=== PATIENT | female | born 1970 | race African-American/Black ===

== ENCOUNTER 2016-12-05 09:36 | Emergency (ER) ==
[2016-12-05 09:49] VITALS: TEMP 98.7
[2016-12-05 10:18] VITALS: BMI 34.0
[2016-12-05 10:34] LABS: BASOPHILS % (AUTO) 0.5 % (0.0-3.0); EOSINOPHILS # (AUTO) 0.1 K/ul (0.0-0.7); EOSINOPHILS % (AUTO) 2.3 % (0.0-7.0); HEMATOCRIT 31.7 % (37.0-47.0); HEMOGLOBIN 10.2 g/dl (12.0-16.0); IMMATURE GRANULOCYTE % (AUTO) 0.2 % (0.0-5.0); LYMPHOCYTES # (AUTO) 1.6 K/uL (0.60-3.4); LYMPHOCYTES % (AUTO) 36.6 (10.0-50.0); MEAN CORPUSCULAR HEMOGLOBIN 28.3 pg (27.0-31.0); MEAN CORPUSCULAR HGB CONC 32.2 (31.8-35.4); MEAN CORPUSCULAR VOLUME 87.8 fl (81.0-99.0); MONOCYTES # (AUTO) 0.5 K/uL (0.4-2.0); NEUTROPHILS # (AUTO) 2.1 K/ul (2.0-6.9); NEUTROPHILS % (AUTO) 49.4; PLATELET COUNT 285 10^3/uL (140-440); RED BLOOD COUNT 3.61 10^6/ul (4.20-5.40); WHITE BLOOD COUNT 4.26 K/ul (4.6-10.2)
[2016-12-05 10:55] LABS: ALBUMIN 3.3 g/dL (3.4-5.0); ALBUMIN/GLOBULIN RATIO 0.92; ANION GAP 11.6; BILIRUBIN,TOTAL 0.29 mg/dL (0.00-1.20); BUN/CREATININE RATIO 8.41; CALCIUM 9.4 mg/dL (8.2-10.2); CREATININE 1.07 mg/dL (0.60-1.30); POTASSIUM 3.6 mmol/L (3.5-5.10); TOTAL PROTEIN 6.9 g/dL (6.4-8.2)
--- NOTE | 2016-12-05 11:08 | CT ---
EXAM: CT of the abdomen and pelvis without contrast History: Abdominal pain, history of sarcoid Comparison: Chest CT 12/05/2016 Technique: Multiplanar CT images through the abdomen pelvis were obtained without the administratio n of IV contrast Findings: Prominent heart size. There is motion artifact. No acute osseous abnormalities identified within limitations of the motio n artifact. Stomach is moderately distended with fluid. Gallbladder is not well seen and may be con tracted. No focal liver or splenic lesions. No peripancreatic inflammation. There are scattered p ancreatic calcifications. Adrenal glands are unremarkable. Bilateral 1-2 mm nonobstructing renal c alculi. The appendix is not dilated or inflamed. No free air. Enlarged uterus. No bladder wall thickening. No perirectal inflammation. Colonic diverticulosis. There is mild focal inflammation seen adjacent to the distal descending colon. Nondilated fluid fi lled loops of small bowel. No bowel obstruction. Prominent bilateral inguinal lymph nodes with alfie cent inflammation. Impression: 1. Acute uncomplicated diverticulitis of the descending colon. 2. Probable mild underlying gastroenteritis. No bowel obstruction. 3. Nonobstructing bilateral nephrolithiasis. 4. Enlarged uterus could indicate fibroids. 5. Bilateral inguinal adenitis.
[2016-12-05 11:15] LABS: TROPONIN I 0.016 ng/ml (0.0000-0.4000)
[2016-12-05 11:17] LABS: CREATINE KINASE MB 3.1 ng/ml (0.0-3.6)
--- NOTE | 2016-12-05 11:18 | CT ---
EXAM: CT chest without contrast HISTORY: Cough, history of sarcoidosis COMPARISON: None TECHNIQUE: CT chest performed without intravenous contrast. Coronal and sagittal reformatted image s obtained. FINDINGS: Evaluation limited due to motion artifact. Thyroid and thoracic inlet appear normal. He art is moderately enlarged. Cardiac pacer. No pericardial effusion. Aorta normal in caliber. Eso phagus unremarkable. Evaluation for lymphadenopathy significantly limited due to contrast. Suggesti on of mild mediastinal and possibly hilar lymphadenopathy that is very poorly evaluated without cont rast. Mild body wall edema. No acute abnormalities of the bones. Mild degenerative change in the spine. Central airway patent. Low lung volumes. No airspace consolidation. No pleural effusion. No pneumothorax. Please refer to separate report CT abdomen pelvis regarding findings in the upper abdomen, noting nephrolithiasis IMPRESSION: 1. Low lung volumes. No airspace consolidation, pleural effusion, or pneumothorax. 2. Cardiomegaly. Cardiac pacer. 3. Mild body wall edema 4. Suggestion of mediastinal and possibly hilar lymphadenopathy, very poorly visualized without con trast
--- NOTE | 2016-12-05 12:17 | US ---
EXAM: Bilateral lower extremity venous duplex ultrasound HISTORY: Leg edema COMPARISON: None available TECHNIQUE: Bilateral lower extremity venous duplex ultrasound FINDINGS: The bilateral common femoral, superficial femoral and popliteal veins are patent and compressible. The bilateral profunda femoris, peroneal, and posterior tibial veins are patent. Prominent bilateral groin lymph nodes are seen. There is bilateral lower leg subcutaneous edema. IMPRESSION: No evidence of right or left lower extremity DVT within the visualized veins. Both anterior tibial veins were not able to be visualized. Bilateral lower extremity edema. Bilateral prominent inguinal lymph nodes.
--- NOTE | 2016-12-05 12:44 | ED.PDOC ---
General ED Provider: Dr. SHARYN TELLES Chief Complaint: Extremity Swelling/Pain Stated Complaint: EXT PAIN , SLEEP APNEA , LOWER LEG EDEMA , ABDOMINAL PAIN Time Seen by Physician: 10:00 (history of sarcoidosis no local MD moved from [facility] ) Mode of Arrival: Wheelchair Information Source: Patient, Family Nursing and Triage Documentation Reviewed and Agree: Yes Respiratory Complaint Exam - Respiratory Complaint/Exam Onset/Duration: sleep apnea on CPAP GETTING WORSE PER SISTER , LEG EDEMA Symptoms Are: Resolved Timing: Intermittent Initial Severity: Moderate Current Severity: Moderate Location: Chest Character: Reports: Non-productive cough Aggravating: Reports: None Alleviating: Reports: Spontaneous resolution Associated Signs and Symptoms: Denies: Rapid breathing, Dyspnea, Fever, Chills, Chest pain, Pleuritic chest pain, Wheezing, Hemoptysis, Dizziness, Calf pain, Calf swelling, Edema, URI, Nasal congestion, Hoarseness, Sinus discomfort, Vomiting, Sore throat, Weight loss, Decreased oral intake, Increased thirst, Increased appetite, Increased urination History of Healthcare-Acquired Pneumonia: No Related Surgical History: Reports: Pacemaker Pulmonary Embolism Risk Factors: Bedrest Cardiac Risk Factors: Reports: Hypertension Pseudomonas Risk Factors: Reports: Chronic Lung Disease (SARCOIDOSIS, ON CPAP AT NIGHTS ) Tuberculosis Risk Factors: Reports: Chronic Resp. Faliure Status Asthmaticus Risk Factors: Reports: None Home Oxygen Use: No Recent Stress Test: No Recent Echo/LV Function: No Current Antibiotic Use: No Current Asthma Medication Use: No Respiratory Distress: None Inadequate Respiratory Effort: No Dysphagia Present: No Stridor Present: No JVD Present: No Accessory Muscle Use: No Retractions: Not Present Diminished Breath Sounds: No Sinus Tenderness: None Grunting Respirations: No Kussmaul Respirations: No Differential Diagnoses: Pneumonia, Bronchitis, Lower Resp. Infection (PE) Review of Systems - Review Of Systems Constitutional: Reports: Malaise Eyes: Reports: No symptoms Ears, Nose, Mouth, Throat: Reports: No symptoms Respiratory: Reports: Cough, Short of air, Wheezing Cardiac: Reports: No symptoms GI: Reports: No symptoms : Reports: No symptoms Musculoskeletal: Reports: Other (LEG EDEMA BILATERAL) Skin: Reports: No symptoms Neurological: Reports: No symptoms Endocrine: Reports: No symptoms Hematologic/Lymphatic: Reports: No symptoms All Other Systems: Reviewed and Negative Past Medical History - Past Medical History Previously Healthy: No Endocrine: Reports: DM 2 Cardiovascular: Reports: Hypertension Respiratory: Reports: None Hematological: Reports: None Gastrointestinal: Reports: None Genitourinary: Reports: None Neuro/Psych: Reports: None Musculoskeletal: Reports: None Cancer: Reports: None Last Menstrual Period: NOVEMBER 09 - Surgical History General Surgical History: Reports: None - Family History Family History: Reports: None - Social History Smoking Status: Former smoker Hx Substance Use: No Alcohol Screening: Occasionally Physical Exam - Physical Exam Appearance: Ill-appearing Eyes: EDVIN, EOMI, Conjunctiva clear ENT: Ears normal, Nose normal, Oropharynx normal Respiratory: Rhonchi Cardiovascular: RRR, Pulses normal, No rub, No murmur GI/: Soft, Nontender, No masses, Bowel sounds normal, No Organomegaly Musculoskeletal: Edema (BILATERAL LOWER EXT) Skin: Warm, Dry, Normal color Neurological: Sensation intact, Motor intact, Reflexes intact, Cranial nerves intact, Alert, Oriented Psychiatric: Affect appropriate, Mood appropriate Interpretation - Radiology Interpretation Radiology Interpretation By: Radiologist Radiology Results: Positive (PULMONARY EMBOLISM RIGHT LUNG) - Mask Designer Rate: Normal Rhythm: Sinus Ectopy: None - EKG Interpretation Rate: Normal Rhythm: Sinus (NONESPECFIC INTRAVENTRICULAR CONDUCTION , DELAY LVH) Critical Care Note - Critical Care Note Total Time (mins): 0 Course - Course Hematology/Chemistry: 12/05/16 10:20 12/05/16 10:20 Orders, Labs, Meds: Lab Review 12/05/16 12/05/16 10:20 10:35 WBC 4.26 L RBC 3.61 L Hgb 10.2 L Hct 31.7 L MCV 87.8 MCH 28.3 MCHC 32.2 RDW Coeff of Jared 15.3 H Plt Count 285 Immature Gran % (Auto) 0.2 Neut % (Auto) 49.4 Lymph % (Auto) 36.6 [place] % (Auto) 11.0 H Eos % (Auto) 2.3 Baso % (Auto) 0.5 Immature Gran # (Auto) 0.0 Neut # 2.1 Lymph # 1.6 [place] # 0.5 Eos # 0.1 Baso # 0.0 D-Dimer (Manual) 3798.74 Sodium 143 Potassium 3.6 Chloride 110 H Carbon Dioxide 25 Anion Gap 11.6 BUN 9 Creatinine 1.07 Estimated GFR (MDRD) 67.00 BUN/Creatinine Ratio 8.41 Glucose 83 Lactic Acid 7.8 Calcium 9.4 Total Bilirubin 0.29 AST 16 ALT 21 Alkaline Phosphatase 30 L Total Creatine Kinase 229 CK-MB (CK-2) 3.1 CK-MB (CK-2) % 1.91381 Troponin I 0.0160 Total Protein 6.9 Albumin 3.3 L Globulin 3.6 Albumin/Globulin Ratio 0.92 Procalcitonin < 0.05 TSH 1.035 Free T4 0.93 Orders Category Date Time Status EKG-(ED ONLY) Stat CARDIO 12/05/16 10:13 Completed NPO REMINDER: IMAGING ONCE CARE 12/05/16 11:36 Ordered ED IV/MEDIPORT/POWERPORT .ONCE EMERGENCY 12/05/16 10:13 Active BLOOD CULTURE Stat LAB 12/05/16 10:20 Received CBC W/ AUTO DIFF Stat LAB 12/05/16 10:20 Completed COMPREHENSIVE METABOLIC PANEL Stat LAB 12/05/16 10:20 Completed CREATINE KINASE Stat LAB 12/05/16 10:20 Completed D-DIMER Stat LAB 12/05/16 10:20 Completed FREE T4 (FREE THYROXINE) Stat LAB 12/05/16 10:20 Completed LACTIC ACID Stat LAB 12/05/16 10:20 Completed PROCALCITONIN Stat LAB 12/05/16 Ordered THYROID STIMULATING HORMONE Stat LAB 12/05/16 10:20 Completed TROPONIN I Stat LAB 12/05/16 10:20 Completed 0.9 % Sodium Chloride [Saline Flush] MEDS 12/05/16 10:13 Active 1 syr IVF PRN PRN [address] ABDOMEN/PELVIS WO CONTRAST Stat RADS 12/05/16 10:[address] CHEST PE PROTOCOL Stat RADS 12/05/16 11:[address] CHEST W/O CONTRAST Stat RADS 12/05/16 10:14 Completed U/S VENOUS SCAN BHASKAR LEGS Stat RADS 12/05/16 10:16 Ordered Medications Generic Name Dose Route Start Last Admin Trade Name Freq PRN Reason Stop Dose Admin Sodium Chloride 1 syr 12/05/16 10:13 Saline Flush IVF PRN PRN To flush IV Vital Signs: Temp Pulse Resp BP Pulse Ox 12/05/16 09:42 98.7 F 100 H 16 149/99 H 96 Departure - Departure Time of Disposition: 14:00 Disposition: TSF SHORT-TRM HOSP Discharge Problem: Pulmonary embolism Qualifiers: Chronicity: acute Instructions: Sarcoidosis (ED) Condition: Good Pt referred to PMD for follow-up: Yes (TRANSFER ) Allergies/Adverse Reactions: Allergies No Known Allergies Allergy (Unverified 12/05/16 09:39) Disposition Discussed With: Patient, Family
--- NOTE | 2016-12-05 12:45 | CT ---
EXAM: CTA of the chest with IV contrast HISTORY: Elevated D-dimer COMPARISON: Same day noncontrast CT TECHNIQUE: CTA of the chest with IV contrast. MIP and 3-D reformats were obtained FINDINGS: A pulmonary embolus is seen within the distal right main pulmonary artery extending into the right l ower lobar pulmonary artery and proximal aspect of a segmental pulmonary artery. No other pulmonary emboli are identified. The heart is enlarged. A left chest wall pacing device is seen. A 1.3 cm pretracheal lymph node is s een. There is a questionable 1.3 cm subcarinal lymph node. There is left greater than right ill-def ined soft tissue thickening of both skinny, left greater than right measuring up to 1.2 cm in thicknes s on the left and 0.8 cm on the right. There are low lung volumes. Bilateral lower lobe mild atelectasis seen. No focal consolidation, pleu ral effusion or pneumothorax is identified. There is bilateral peribronchial wall thickening. Body w all edema is again seen. IMPRESSION: Distal right main pulmonary artery embolus extending into the right lower lobar pulmonary artery and a right lower lobar segmental pulmonary artery. Cardiomegaly. Mildly enlarged nonspecific mediastinal lymph nodes. Nonspecific bilateral perihilar soft tissue density likely representing conglomerate lymph nodes. Sh ort interval follow-up CT is recommended. Bilateral peribronchial thickening which can be seen with bronchitis/bronchiolitis. Mild bilateral lower lobe atelectasis. Low lung volumes. Findings were discussed Dr. Chandler at 1239 hours on 11/27/2016.
[2016-12-05] MEDS ORDERED: LOVENOX SUBCUT STA (13:14)
[2016-12-05 14:04] VITALS: BP 160/116
== END 2016-12-05 14:30 | disposition short-term general hospital (02) ==
LOC: ED 09:36
DX: I26.99 Other pulmonary embolism without acute cor pulmonale (principal); I10 Essential (primary) hypertension; D86.9 Sarcoidosis, unspecified; R60.0 Localized edema; E11.9 Type 2 diabetes mellitus without complications; G47.30 Sleep apnea, unspecified; R10.9 Unspecified abdominal pain; Z95.0 Presence of cardiac pacemaker
CPT/HCPCS: 36415; 80053; 82550; 82553; 83605; 84145; 84439; 84443; 84484; 85025; 85379; 87040; 93005; 93010; 96372; 99285

== ENCOUNTER 2016-12-05 14:27 | Outpatient (CLI) ==
[2016-12-05 10:18] VITALS: BMI 34.0
== END 2016-12-05 14:28 | disposition home or self-care (01) ==
LOC: AMBL 14:27
PROVIDERS: ATTEND Internal Medicine
DX: R60.9 Edema, unspecified (principal); I26.99 Other pulmonary embolism without acute cor pulmonale